=== PATIENT | female | born 1980 | race Caucasian/White ===

== ENCOUNTER 2017-01-19 16:24 | Emergency (ER) | payer BC ==
[~2017-01-19] VITALS: Ht 160 cm; Wt 70.0 kg
[2017-01-19] MEDS ORDERED: ONDANSETRON 4MG/2ML VIAL (J2405) IV ONE (16:45)
[2017-01-19] MEDS ORDERED: MORPHINE 2 MG/ML 1ML SYRINGE IV PRN (16:45)
--- NOTE | 2017-01-19 17:09 | REP ---
CT Head without contrast HISTORY: Trauma COMPARISON: None There is no intraparenchymal hemorrhage, acute infarct, mass or midline shift. The ventricular system is normal in appearance. There is no extra cerebral collection. There is no fracture. The visualized sinuses are clear. IMPRESSION: There is no intracranial lesion. Signed by Shawn Chaidez MD 01/19/2017 05:01 P
--- NOTE | 2017-01-19 17:15 | REP ---
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 There is no acute fracture or subluxation. A disc bulge is present at the C5-6 level. There is minimal narrowing of the spinal canal. Uncinate process hypertrophy is present on the left. This produces minimal narrowing of the left C5 neural foramen. The remaining neural foramina are patent. The intervertebral discs and vertebral bodies are normal in height. There is spina bifida occulta of C6 and C7. IMPRESSION: 1. There is no acute fracture or subluxation. 2. There is cervical spondylosis at the C5-6 level. Signed by Shawn Chaidez MD 01/19/2017 05:06 P
[2017-01-19] MEDS ORDERED: KETOROLAC 30 MG/ML VIAL (J1885) IV ONE (17:30)
[2017-01-19 17:31] LABS: BASO % 0.3 % (0.0-1.0); EOS # 0.3 K/mm3 (0.0-0.50); EOS % 1.6 % (0.0-3.0); LARGE UNSTAINED CELL # 0.1 K/mm3 (0.0-0.4); LARGE UNSTAINED CELL % 0.7 % (0.0-4.0); LYMPH # 1.9 K/mm3 (1.5-4.5); LYMPH % 11.7 % (24.0-44.0); MEAN CORPUSCULAR HEMOGLOBIN 32.7 pg (27.0-33.0); MEAN CORPUSCULAR HGB CONC 35.3 g/dl (32.0-36.5); MEAN CORPUSCULAR VOLUME 92.6 fl (80.0-96.0); MONO # 0.4 K/mm3 (0.0-0.8); MONO % 2.4 % (0.0-5.0); NEUTROPHILS # 13.2 K/mm3 (1.8-7.7); NEUTROPHILS % 83.2 % (36.0-66.0); PLATELET COUNT, AUTOMATED 374 k/mm3 (150-450); RED CELL DISTRIBUTION WIDTH 12.4 % (11.5-14.5); WHITE BLOOD COUNT 15.8 K/mm3 (4.0-10.0)
[2017-01-19 17:41] LABS: ANION GAP 9 MEQ/L (8-16); BLOOD UREA NITROGEN 7 MG/DL (7-18); CALCIUM LEVEL 9.4 MG/DL (8.5-10.1); CARBON DIOXIDE LEVEL 24 MEQ/L (21-32); CHLORIDE LEVEL 107 MEQ/L (98-107); CREATININE FOR GFR 0.84 MG/DL (0.55-1.02); GLOMERULAR FILTRATION RATE > 60.0 (>60); GLUCOSE, FASTING 98 MG/DL (70-105); POTASSIUM SERUM 4.1 MEQ/L (3.5-5.1); SODIUM LEVEL 140 MEQ/L (136-145)
[2017-01-19 18:41] VITALS: BP 136/81
[2017-01-19] MEDS ORDERED: SKEL800T97 PO (18:46)
[2017-01-19] MEDS ORDERED: IBUP-1022 PO (18:46)
--- NOTE | 2017-01-20 08:10 | REP ---
LEFT SHOULDER, THREE VIEWS: HISTORY: Pain. There is no acute fracture or dislocation. The joint spaces are normal in appearance. IMPRESSION: There is no acute fracture or dislocation. Signed by Shawn Chaidez MD 01/20/2017 08:11 A
--- NOTE | 2017-01-20 08:11 | REP ---
PORTABLE CHEST, ONE VIEW: HISTORY: Trauma. The lungs are clear. The heart is normal in size. The pulmonary vasculature is normal in appearance. IMPRESSION: No acute disease. Signed by Shawn Chaidez MD 01/20/2017 08:17 A
== END 2017-01-19 19:06 | disposition home or self-care (01) ==
LOC: M ED 16:24
DX: S09.90XA Unspecified injury of head, initial encounter (principal); S46.912A Strain of unspecified muscle, fascia and tendon at shoulder and upper arm level, left arm, initial encounter; S16.1XXA Strain of muscle, fascia and tendon at neck level, initial encounter; X58.XXXA Exposure to other specified factors, initial encounter; Y92.89 Other specified places as the place of occurrence of the external cause; Y93.9 Activity, unspecified; Y99.9 Unspecified external cause status; M47.812 Spondylosis without myelopathy or radiculopathy, cervical region; F17.200 Nicotine dependence, unspecified, uncomplicated; Z91.040 Latex allergy status
CPT/HCPCS: 36415; 70450; 71010; 72125; 73030; 80048; 85025; 93041; 94760; 96374; 96375; 99285; J1885; J2405